=== PATIENT | male | born 1950 | race Caucasian/White ===

== ENCOUNTER 2024-11-28 08:02 | Outpatient (CLI) | payer MEDICARE, SELFPAY ==
--- OUTSIDE RECORDS SUMMARY | 2024-11-28 08:09 | XMS_ITS | Clinical Summary ---
Author Organization [facility] [place] [address] [place] [address] Care Team Providers Care Apparel Manufacture Instructor Name Role Phone Unavailable Primary Care Provider Unavailabl e Social History Tobacco Use Types Packs/Day Years Used Date Smoking Tobacco: Never Assessed Sex and Gender Information Value Date Recorded Sex Assigned at Not on file Legal Sex Male 11:42 PM PST Gender Identity Not on file Sexual Orientation Not on file Plan of Treatment Not on file
--- OUTSIDE RECORDS SUMMARY | 2024-11-28 08:09 | XMS_ITS | Encounter Summary ---
Author Organization [facility] Address [address] [place] [address] Care Team Providers Care Production Control Clerk Name Role Phone Unavailable Primary Care Provider Unavailabl e Prior Encounters Date Type Department Care Team Description 09/19/2019 Converted 13x Documents [facility] [address] [place] [address] <No scans attached> 09/19/2019 Converted CPS Chart Documents [facility] [address] [place] [address] <No scans attached> Plan of Treatment Not on file Procedures Procedure Name Priority Date/Time Associated Diagnosis Comments CANCELLED APPOINTMENT Routine 11/15/2009 12:00 AM MST 15 CEMENT CROWN Routine 04/21/2008 12:00 AM MST OFFICE VISIT FOR OBSERVATION (DURING REGULARLY SCHEDULED HOURS) - NO OTHER SERVICES PERFORMED Routine 03/27/2008 12:00 AM MST UL LIMITED ORAL EVALUATION - PROBLEM FOCUSED Routine 03/27/2008 12:00 AM MST SINGLE X-RAY Routine 03/27/2008 12:00 AM MST 15 CORE BUILDUP, INCLUDING ANY PINS WHEN REQUIRED Routine 03/24/2008 12:00 AM MST 15 PULP CAP - INDIRECT (EXCLUDING FINAL RASTAFARIAN) Routine 03/24/2008 12:00 AM MST 15 CROWN PFG POST Routine 03/24/2008 12: 00 AM MST 15 CROWN - FULL CAST PREDOMINANTLY BASE METAL Routine 09/08/2007 1:00 AM MST 2 CROWN - FULL CAST PREDOMINANTLY BASE METAL Routine 09/08/2007 1:00 AM MST 4 MOD AMALGAM 3 SURFACE Routine 09/08/19 08 1:00 AM MST 3 MOD AMALGAM 3 SURFACE Routine 09/08/19 08 1:00 AM MST 30 MO AMALGAM 2 SURFACE Routine 09/08/19 08 1:00 AM MST 12 DO AMALGAM 2 SURFACE Routine 09/08/19 08 1:00 AM MST 5 MO AMALGAM 2 SURFACE Routine 8 1:00 AM MST 18 O AMALGAM 1 SURFACE Routine 8 1:00 AM MST 17 O AMALGAM 1 SURFACE Routine 8 1:00 AM MST 31 O AMALGAM 1 SURFACE Routine 8 1:00 AM MST 14 O AMALGAM 1 SURFACE Routine 8 1:00 AM MST UR PERIODONTAL SCALING AND ROOT PLANING - FOUR OR MORE TEETH PER QUADRANT Routine 09/08/2007 1:00 AM MST UL PERIODONTAL SCALING AND ROOT PLANING - FOUR OR MORE TEETH PER QUADRANT Routine 09/08/2007 1:00 AM MST LR PERIODONTAL SCALING AND ROOT PLANING - FOUR OR MORE TEETH PER QUADRANT Routine 09/08/2007 1:00 AM MST LL PERIODONTAL SCALING AND ROOT PLANING - FOUR OR MORE TEETH PER QUADRANT Routine 09/08/2007 1:00 AM MST UR ANTIBACT IRR/QUAD Routine 09/08/2007 1:00 AM MST UL ANTIBACT IRR/QUAD Routine 09/08/2007 1:00 AM MST LR ANTIBACT IRR/QUAD Routine 09/08/2007 1:00 AM MST LL ANTIBACT IRR/QUAD Routine 09/08/2007 1:00 AM MST IPE Routine 09/08/2007 1:00 AM MST INTRAORAL - COMPREHENSIVE SERIES OF RADIOGRAPHIC IMAGES Routine 09/08/2007 1:00 AM MST INTRAORAL PHOTO Routine 09/08/2007 1:00 AM MST INTRAORAL PHOTO Routine 09/08/2007 1:00 AM MST INTRAORAL PHOTO Routine 09/08/2007 1:00 AM MST INTRAORAL PHOTO Routine 09/08/2007 1:00 AM MST 7 L COMPOSITE FILLING Routine 09/08/2007 1:00 AM MST 6 L COMPOSITE FILLING Routine 09/08/2007 1:00 AM MST Visit Diagnoses Not on file
[2024-11-28 09:27] LABS: Alanine Aminotransferase 19 U/L (6-50); Albumin Level 4.1 g/dL (3.5-5.1); Alkaline Phosphatase 79 U/L (38-126); Anion Gap 5 mmol/L (4-12); Aspartate Amino Transferase 19 U/L (17-59); Bilirubin,Total 0.9 mg/dL (0.2-1.3); Blood Urea Nitrogen 17 mg/dL (9-20); Calcium 9.2 mg/dL (8.4-10.2); Carbon Dioxide 32 mmol/L (22-30); Chloride 103 mmol/L (98-107); Estimated Glomerular Filt Rate > 60; Glucose 99 mg/dL (65-110); Potassium 4.4 mmol/L (3.4-5.0); Sodium 140 mmol/L (137-145)
== END 2024-11-28 08:03 | disposition home or self-care (01) ==
LOC: ANHLAB 08:04
PROVIDERS: PCP Nurse Practitioner Family; Visit Provider Nurse Practitioner Family
DX: E66.811 Obesity, class 1 (principal); I10 Essential (primary) hypertension
CPT/HCPCS: 36415; 80053

== ENCOUNTER 2025-05-23 08:13 | Outpatient (CLI) | payer MEDICARE, SELFPAY ==
--- OUTSIDE RECORDS SUMMARY | 2025-05-23 08:33 | XMS_ITS | Clinical Summary ---
Author Organization [facility] Health Address [address] [place] [address] Care Team Providers Care Rescue Boat Operator Name Role Phone Unavailable Primary Care Provider [...]
--- OUTSIDE RECORDS SUMMARY | 2025-05-23 08:33 | XMS_ITS | Encounter Summary ---
Author Organization [facility] Health Address [address] [place] [address] Care Team Providers Care E Commerce Merchandising Coordinator Name Role Phone Unavailable Primary Care Provider Unavailabl e Prior Encounters Date Type Department Care Team Description 09/19/2019 Converted 13x Documents [facility] [address] [place] [address] <No scans attached> 09/19/2019 Converted CPS Chart Documents [facility] [address] [place] [address] <No [...] 15 PULP CAP - INDIRECT (EXCLUDING FINAL MORAVIAN) Routine 03/24/2008 12:00 AM MST 15 CROWN [...]
[2025-05-23 10:11] LABS: Hematocrit 45.0 % (42.0-52.0); Hemoglobin 14.8 g/dL (14.0-18.0); Immature Granulocyte Percent A 0.4 % (0-0.5); Lymphocytes Absolute Auto 1.78 K/mm3 (0.9-3.2); Mean Corpuscular HGB Conc 32.9 g/dl (32-36); Mean Corpuscular Hemoglobin 29.8 pg (26-34); Mean Corpuscular Volume 90.7 fl (80-100); Nucleated Red Blood Cells Absolute Auto 0.000 K/mm3 (0.0-0.012); Nucleated Red Blood Cells Perc 0.0 % (0.0-0.2); Platelet Count Result 261 k/mm3 (150-375); Red Blood Count 4.96 M/mm3 (4.6-6.20); White Blood Count 7.1 K/mm3 (4.5-10.0)
[2025-05-23 10:18] LABS: Hemoglobin A1C 5.5 % (<5.7)
[2025-05-23 10:24] LABS: Alanine Aminotransferase 18 U/L (6-50); Albumin Level 4.1 g/dL (3.5-5.1); Alkaline Phosphatase 61 U/L (38-126); Anion Gap 7 mmol/L (4-12); Aspartate Amino Transferase 33 U/L (17-59); Bilirubin,Total 1.0 mg/dL (0.2-1.3); Blood Urea Nitrogen 19 mg/dL (9-20); Calcium 9.0 mg/dL (8.4-10.2); Carbon Dioxide 30 mmol/L (22-30); Chloride 101 mmol/L (98-107); Cholesterol 219 mg/dL (0-200); Estimated Glomerular Filt Rate > 60; Glucose 95 mg/dL (65-110); HDL Direct 51 mg/dL; Potassium 3.7 mmol/L (3.4-5.0); Sodium 138 mmol/L (137-145); Total Protein 7.1 g/dL (6.3-8.2); Triglycerides 166 mg/dL (<150)
== END 2025-05-23 08:14 | disposition home or self-care (01) ==
LOC: ANHLAB 08:14
PROVIDERS: PCP Nurse Practitioner Family; Visit Provider Nurse Practitioner Family
DX: I10 Essential (primary) hypertension (principal); R73.01 Impaired fasting glucose; E66.811 Obesity, class 1; M19.90 Unspecified osteoarthritis, unspecified site; J44.9 Chronic obstructive pulmonary disease, unspecified; G47.9 Sleep disorder, unspecified
CPT/HCPCS: 36415; 80053; 80061; 83036; 85025